=== PATIENT | male | born 1970 | race Two or more races ===

== ENCOUNTER 2019-02-19 18:41 | Emergency (ER) | payer BC ==
[~2019-02-19] VITALS: Ht 175.3 cm; Wt 136.1 kg
[2019-02-19] MEDS ORDERED: AZITHROMYCIN 250 MG TAB PO ONE (20:15)
[2019-02-19] MEDS ORDERED: LACTULOSE 20Gm/30ML SOLN PO ONE (20:15)
[2019-02-19] MEDS ORDERED: cefTRIAXone SOD 1,000 MG VL IM ONE (20:15)
[2019-02-19 20:18] VITALS: BP 166/115
[2019-02-19] MEDS ORDERED: methylPREDNISolone SOD SUCC 125 MG/2 ML VL IM ONE (20:30)
== END 2019-02-19 21:14 | disposition home or self-care (01) ==
LOC: ER 18:46
DX: N45.1 Epididymitis (principal); K64.9 Unspecified hemorrhoids
CPT/HCPCS: 76870; 96372; 99284; J0696; J2930

== ENCOUNTER 2025-01-18 13:25 | Emergency (ER) | payer SELFPAY ==
[~2025-01-18] VITALS: Ht 175.3 cm; Wt 151.0 kg
[2025-01-18] MEDS ORDERED: AUG875T PO (14:14)
[2025-01-18] MEDS ORDERED: IBUP-1454 PO (14:14)
[2025-01-18] MEDS ORDERED: CIPR1SUS8 OT (14:14)
--- NOTE | 2025-01-18 14:14 | ED.PDOC ---
Eye-HPI HPI Comments 54 year old male with a Hx of DM presents to the ED for the c/c of Right Ear pain. Pt states that his pain has been going on for the past 5x days with no alleviating factors at this time. Pt states that he has been taking Penicillin for a possible infection, but denies any improvement. Pt denies any drainage, or other associated modifiers or symptoms at this time. Denies blunt trauma (hand blow to the ear, fall, direct hit) Denies penetrating trauma (Q-tip use, match-stick, gunshot wound, welding spark) Denies ear trauma Denies barotrauma Denies blast injury Denies air travel Denies scuba diving Denies hearing loss Denies persistent ringing in the ear Denies fever chills night sweats unintentional weight loss Denies nausea vomiting severe headache or recent vision changes Chief Complaint: Earache Time Seen by MD: 13:34 Primary Care Provider: UNKNOWN Reviewed Notes: Nurses Notes, Medications, Allergies Allergies: Coded Allergies: NO KNOWN ALLERGIES (Unverified , 02/19/19) Home Meds Active Scripts Ibuprofen (Ibuprofen) 600 Mg Tab, 1 TAB PO TID for 10 Days, #30 TAB 0 Refills Prov:GEOVANNY ALTAMIRANO NP 01/18/25 Amoxicillin & Pot Clavulanate (AUGMENTIN TABLET) 875 Mg Tb, 875 MG PO BID for 5 Days, #10 TAB 0 Refills Prov:GEOVANNY ALTAMIRANO NP 01/18/25 Ciprofloxacin-Dexamethasone (Ciprofloxacin/Dexamethaso 0.3-0.1 %) 1 Kori Kori, 4 DROP OT BID for 7 Days, #5 ML 0 Refills Prov:GEOVANNY ALTAMIRANO NP 01/18/25 Information Source: Patient Mode of Arrival: Ambulatory Timing: Days Duration: Since onset, Days Prehospital treatment: None Quality: Pain Lids: Normal Conjunctiva: Normal Cornea: Normal Pupils: Normal EOM: Normal Fundus: Normal Slit lamp exam: Normal Anterior chamber: Normal Mouth: Normal ENT Ear Exam: Tender, Swelling Nose: Normal Sinuses: Normal Oropharynx: Normal Onset: Spontaneous Throat Exposed to: None History of: None Last Tetanus: Unknown Associated signs and symptoms: Ear Pain Past Medical History PAST MEDICAL HISTORY: DM Surgical History: Denies all surgeries Family History Family History: Unknown Social History Smoker: Non-Smoker Alcohol: Denies ETOH Use Drugs: Denies Drug Use Lives In: Home Constitutional: denies: chills, diaphoresis, fatigue, fever, malaise, sweats, weakness, others EENTM: reports: ear pain; denies: blurred vision, double vision, ear bleeding, ear discharge, ear drainage, ear ringing, eye pain, eye redness, hearing loss, mouth pain, mouth swelling, nasal discharge, nose bleeding, nose congestion, nose pain, photophobia, tearing, throat pain, throat swelling, voice changes, others Respiratory: denies: cough, hemoptysis, orthopnea, SOB at rest, shortness of breath, SOB with excertion, stridor, wheezing, others Cardiovascular: denies: chest pain, dizzy spells, diaphoresis, Dyspnea on exertion, edema, irregular heart beat, left arm pain, lightheadedness, palpitations, PND, syncope, others Gastrointestinal: denies: abdomen distended, abdominal pain, blood streaked bowels, constipated, diarrhea, dysphagia, difficulty swallowing, hematemesis, m kenny, nausea, poor appetite, poor fluid intake, rectal bleeding, rectal pain, vomiting, others Genitourinary: denies: burning, dysuria, flank pain, frequency, hematuria, incontinence, penile discharge, penile sore, pain, testicle pain, testicle swelling, urgency, others Neurological: denies: dizziness, fainting, headache, left sided numbness, left sided weakness, numbness, paresthesia, pre-existing deficit, right sided numbness, right sided weakness, seizure, speech problems, tingling, tremors, weakness, others Musculoskeletal: denies: back pain, gout, joint pain, joint swelling, muscle pain, muscle stiffness, neck pain, others Integumetry: denies: bruises, change in color, change in hair/nails, dryness, laceration, lesions, lumps, rash, wounds, others Allergic/Immunocompromised: denies: Difficulty Healing, Frequent Infections, Hives, Itching, others Hematologic/Lymphatic: denies: anemia, blood clots, easy bleeding, easy bruising, swollen glands, others Endocrine: denies: excessive hunger, excessive sweating, excessive thirst, excessive urination, flushing, intolerance to cold, intolerance to heat, unexplained weight gain, unexplained weight loss, others Psychiatric: denies: anxiety, bipolar disorder, depression, hopeless, panic disorder, schizophrenia, sleepless, suicidal, others All Other Systems: Reviewed and Negative Physical Exam General Appearance: No Apparent Distress, Normal HEENT: Fundus (R), Pharynx Normal, TM Abnormal (R) (Canal is erythemits, edemitus, unable to visulize the TM due to pain, no sings of mastoiitis) Neck: Full Range of Motion, Non-Tender, Normal, Normal Inspection Respiratory: Chest Non-Tender, Lungs Clear, No Accessory Muscle Use, No Respiratory Distress, Normal Breath Sounds Cardiovascular: No Edema, No JVD, No Murmur, No Gallop, Normal Peripheral Pulses, Regular Rate/Rhythm Breast Exam: Deferred Gastrointestinal: Non Tender, No Pulsatile Mass, Normal Bowel Sounds, Soft Genitalia: Deferred Pelvic: Deferred Rectal: Deferred Extremities: No calf tenderness, Normal capillary refill, Normal inspection, Normal range of motion, Non-tender, No pedal edema Musculoskeletal : Apperance: Normal Neurologic: Alert, No Motor Deficits, Normal Affect, Normal Mood, No Sensory Deficits Cerebellar Function: Normal Reflexes: Normal Skin: Dry, Normal Color, Warm Lymphatic: No Adenopathy Was a procedure done? Was a procedure done?: No EENT DIFF Eye: Other Ear: Abrasion, Cerumen Impaction, Foreign Body, Otitis Externa, Otitis Media, Perforation, TMJ Syndrome X-Ray, Labs, Meds, VS Vital Signs Date Time Temp Pulse Resp B/P (MAP) Pulse Ox O2 Delivery O2 Flow Rate FiO2 01/18/25 16:08 83 18 98 Room Air 01/18/25 16:08 97.4 83 17 144/81 (102) 98 97.4 01/18/25 13:52 97.4 83 17 144/81 (102) 98 97.4 X-Ray, Labs, Meds, VS Comment 54 year old male with a Hx of DM presents to the ED for the c/c of Right Ear pain. Patient arrives alert and oriented, ABC's intact, afebrile, vital signs stable, saturating well in room air Differentials considered but not limited to mastoiditis, malignant otitis externa, herpes zoster, oticus, perichondritis, juvenile spring eruption, frostbite, sunburn, tumor. Exam and history are most consistent with Otitis Externa. No diabetes, immunosuppression. Rx: CiproDex [4 drops instilled into the affected ear twice daily for seven days] for inflammatory relief and infection control. Unable to see the TM therefore Augmentin was also prescribed to cover any otitis media Disposition: Discharge home. Strict return precautions discussed. Advise follow up with primary care provider within 24-48 hours. Additional MDM Review of External, Non-ED records: External records reviewed. Discussion with independent historian (EMS, family) history obtained from the patient/parents (if applicable) at bedside Chronic conditions affecting care: None Social determinants of health affecting care: None Time of 1ST Reevaluation: 14:12 Reevaluation 1ST: Improved Patient Education/Counseling: Diagnosis, Treatment Family Education/Counseling: Diagnosis, Treatment SEPSIS Sepsis Screen Date sepsis recognized/suspect: Jan 18, 2025 Time Sepsis recognized/suspect: 1351 Recent Procedure: No On Antibiotic Therapy: No Respiratory Rate >20: No Heart Rate >90: No Temp<36 C (96.8 F) or >38.3 C: No SBP <90 or MAP <65 mmHG: No New Acute Mental Status Change: No Is the patient on CPAP, BIPAP,: No Vital Signs Date Time Temp Pulse Resp B/P (MAP) Pulse Ox O2 Delivery O2 Flow Rate FiO2 01/18/25 16:08 83 18 98 Room Air 01/18/25 16:08 97.4 83 17 144/81 (102) 98 97.4 01/18/25 13:52 97.4 83 17 144/81 (102) 98 97.4 Departure 1 Departure Time of Disposition: 14:14 Impression: Primary Impression: Acute otitis externa Qualified Codes: H60.311 - Diffuse otitis externa, right ear Disposition: 01 HOME / SELF CARE / HOMELESS Condition: Stable e-Prescriptions Ibuprofen (Ibuprofen) 600 Mg Tab 1 TAB PO TID for 10 Days, #30 TAB 0 Refills Prov: GEOVANNY ALTAMIRANO [employer]ARN[employer] 01/18/25 Amoxicillin & Pot Clavulanate (AUGMENTIN TABLET) 875 Mg Tb 875 MG PO BID for 5 Days, #10 TAB 0 Refills Prov: GEOVANNY ALTAMIRANO [employer] 01/18/25 Ciprofloxacin-Dexamethasone (Ciprofloxacin/Dexamethaso 0.3-0.1 %) 1 Kori Kori 4 DROP OT BID for 7 Days, #5 ML 0 Refills Prov: GEOVANNY ALTAMIRANO [employer] 01/18/25 Critical Care Note Critical Care Time?: No Stability Stability form required: No Heart Score Heart Score: Heart Score Response (Comments) Value History N/A 0 EKG N/A 0 Age N/A 0 Risk Factors N/A 0 Troponin N/A 0 Total 0 I personally scribed for GEOVANNY ALTAMIRANO HARNESS FITTER ([email or web address]) on 01/18/25 at 14:59. Electronically submitted by Luis A Seymour ([email or web address]). GEOVANNY ALTAMIRANO NP Jan 18, 2025 14:14
[2025-01-18 16:08] VITALS: BP 144/81; PULSE 83; RESP 18; TEMP 97.4; O2SAT 98
== END 2025-01-18 16:10 | disposition home or self-care (01) ==
LOC: ER 13:25
DX: H60.91 Unspecified otitis externa, right ear (principal); E11.9 Type 2 diabetes mellitus without complications; Z79.2 Long term (current) use of antibiotics